=== PATIENT | male | born 1985 | race American Indian/Alaskan Native ===

== ENCOUNTER 2019-04-02 15:16 | Emergency (ER) | payer MEDICAID ==
[2019-04-02 16:05] VITALS: BP 120/80
[2019-04-02] MEDS ORDERED: TYLENOL PO ONE (16:08)
--- NOTE | 2019-04-02 16:08 | Event Note ---
ED Screening Note Date of service: 04/02/19 Time: 16:04 ED Screening Note: 33 y/o male comes in for headache for a few days after taking his Risperdal. Not been able to sleep for a few days. Walking halls more. No N/V. No SI/HI Does not want to speak to a mental health provider. PMH: history of schizophrenia Neuro: EMOI PERRA finger to nose intact gag reflect intact strength all extrimities 4/5 Gait normal Heel down horvath intact no pronator drift This initial assessment/diagnostic orders/clinical plan/treatment(s) is/are subject to change based on patients health status, clinical progression and re- assessment by fellow clinical providers in the ED. Further treatment and workup at subsequent clinical providers discretion. Patient/guardian urged not to elope from the ED as their condition may be serious if not clinically assessed and managed. Initial orders include:
--- NOTE | 2019-04-02 18:19 | Emergency Department Report ---
ED Headache HPI - General Chief Complaint: Headache Stated Complaint: HEAD PAIN Time Seen by Provider: 04/02/19 16:04 - History of Present Illness Initial Comments: pt is a 33 y/o aam with hx of schizophrenia and headache, on respiradol po states frontal headache intermittent x 1 week ,there is no decrease or blurred vision no n/v non dizziness no lightheadedness no n/v no fever or chills no neck pain , h/a relieved by tylenol po , pt now requesting referal to [facility] for psych medication refill, pt denies HI or SI is a/o x3 ambulatory with steady gait nad. Timing/Duration: 1 week Quality: moderate Head Injury Location: frontal Recent Head Trauma: frequent headaches Associated Symptoms: denies: confusion, fatigue, facial pain, fever/chills, loss of consciousness, nausea/vomiting, nasal congestion, nasal drainage, numbness in legs/feet, seizures, sinus infection, stiff neck, vision changes, weakness Allergies/Adverse Reactions: Allergies No Known Allergies Allergy (Verified 04/02/19 15:27) Home Medications: Ambulatory Orders Acetaminophen [Acetaminophen TAB] 1,000 mg PO Q6HR PRN #30 tablet 04/02/19 diphenhydrAMINE [Benadryl CAP] 25 mg PO Q6HR PRN #30 capsule 04/02/19 risperiDONE [RisperDAL] 1 mg PO BID 3 Days #6 tablet 04/02/19 ED Review of Systems ROS: Stated complaint: HEAD PAIN Other details as noted in HPI Constitutional: denies: chills, fever Eyes: denies: eye pain, eye discharge, vision change ENT: denies: ear pain, throat pain Respiratory: denies: cough, shortness of breath, wheezing Cardiovascular: denies: chest pain, palpitations Endocrine: no symptoms reported Gastrointestinal: denies: abdominal pain, nausea, diarrhea Genitourinary: denies: urgency, dysuria Musculoskeletal: denies: back pain, joint swelling, arthralgia Skin: denies: rash, lesions Neurological: as per HPI, headache. denies: weakness, numbness, confusion, vertigo Psychiatric: denies: anxiety, depression Hematological/Lymphatic: denies: easy bleeding, easy bruising ED Past Medical Hx - Past Medical History Previous Medical History?: Yes Additional medical history: schizophrenia - Surgical History Past Surgical History?: No - Social History Smoking Status: Never Smoker Substance Use Type: None - Medications Home Medications: Home Medications Medication Instructions Recorded Confirmed Last Taken Type Acetaminophen [Acetaminophen TAB] 1,000 mg PO Q6HR PRN #30 tablet 04/02/19 Unknown Rx diphenhydrAMINE [Benadryl CAP] 25 mg PO Q6HR PRN #30 capsule 04/02/19 Unknown Rx risperiDONE [RisperDAL] 1 mg PO BID 3 Days #6 tablet 04/02/19 Unknown Rx ED Physical Exam - General Limitations: No Limitations General appearance: alert, in no apparent distress - Head Head exam: Present: atraumatic, normocephalic, normal inspection - Eye Eye exam: Present: normal appearance, PERRL, EOMI. Absent: conjunctival injection, nystagmus, periorbital swelling, periorbital tenderness Pupils: Present: normal accommodation - ENT ENT exam: Present: normal orophraynx, mucous membranes moist, TM's normal bilaterally, normal external ear exam - Neck Neck exam: Present: normal inspection, full ROM. Absent: tenderness, meningismus, lymphadenopathy, thyromegaly - Expanded Neck Exam Expanded Neck exam: Absent: tenderness, midline deformity, anterior neck swelling, thyroid mass, carotid bruit, tracheal deviation - Respiratory Respiratory exam: Present: normal lung sounds bilaterally. Absent: respiratory distress, wheezes, rhonchi - Cardiovascular Cardiovascular Exam: Present: regular rate, normal rhythm, normal heart sounds. Absent: systolic murmur, diastolic murmur, rubs, gallop - GI/Abdominal GI/Abdominal exam: Present: soft, normal bowel sounds. Absent: distended, tenderness, bruit, hernia - Rectal Rectal exam: Present: deferred - Extremities Exam Extremities exam: Present: normal inspection, full ROM, normal capillary refill - Back Exam Back exam: Present: normal inspection, full ROM. Absent: tenderness, CVA tenderness (R), CVA tenderness (L), muscle spasm, paraspinal tenderness, rash noted - Neurological Exam Neurological exam: Present: alert, oriented X3, CN II-XII intact, normal gait, reflexes normal. Absent: motor sensory deficit - Expanded Neurological Exam Expanded Patient oriented to: Present: person, place, time Speech: Present: fluid speech Cranial nerves: EOM's Intact: Normal, Gag Reflex: Normal, Tongue Deviation: Normal, Nystagmus: Normal, Facial Sensation: Normal Cerebellar function: Finger to Nose: Normal, Heel to Chaudhry: Normal, Romberg: Normal Upper motor neuron: Robert Neglect: Normal, Pronator Drift: Normal, Sensory Extinction: Normal Motor strength exam: RUE: 5, LUE: 5, RLE: 5, LLE: 5 DTR: bicep (R): 2+, bicep (L): 2+, ankle (R): 2+, ankle (L): 2+ Best Eye Response (Lincoln): (4) open spontaneously Best Motor Response ([place]incoln): (6) obeys commands Best Verbal Response ([place]incoln): (5) oriented [place] Total: 15 - Psychiatric Psychiatric exam: Present: normal affect, normal mood - Skin Skin exam: Present: warm, dry, intact, normal color. Absent: rash ED Course Vital Signs 04/02/19 04/02/19 16:01 16:19 Temperature 98.2 F Pulse Rate 97 H Respiratory 20 18 Rate Blood Pressure 120/80 Blood Pressure 120/80 [Right] O2 Sat by Pulse 99 Oximetry ED Medical Decision Making - Medical Decision Making Headache relieved plan DC home with Tylenol Benadryl Reglan follow-up with [facility] for refill for her psych medications patient is currently alert oriented 3 hammertoe was steady gait with no acute distress headache is 1/10 at this time Critical care attestation.: If time is entered above; I have spent that time in minutes in the direct care of this critically ill patient, excluding procedure time. ED Disposition Clinical Impression: Headache Qualifiers: Headache type: unspecified Headache chronicity pattern: acute headache Intractability: not intractable Qualified Code(s): R51 - Headache Disposition: DC-01 TO HOME OR SELFCARE Is pt being admited?: No Does the pt Need Aspirin: No Condition: Stable Instructions: Acute Headache (ED) Prescriptions: Acetaminophen [Acetaminophen TAB] 1,000 mg PO Q6HR PRN #30 tablet PRN Reason: Headache diphenhydrAMINE [Benadryl CAP] 25 mg PO Q6HR PRN #30 capsule PRN Reason: Headache risperiDONE [RisperDAL] 1 mg PO BID 3 Days #6 tablet Referrals: [facility] [Outside] - 3-5 Days PRIMARY CARE, [Primary Care Provider] - 3-5 Days Forms: Work/School Release Form(ED) Time of Disposition: 18:30
== END 2019-04-02 18:44 | disposition home or self-care (01) ==
LOC: ED 15:16
DX: R51 Headache (principal); F20.9 Schizophrenia, unspecified; Z79.899 Other long term (current) drug therapy
CPT/HCPCS: 99282

== ENCOUNTER 2019-05-17 12:05 | Emergency (ER) | payer MEDICAID ==
[2019-05-17 14:27] LABS: Eosinophils % (Auto) 0.8 % (0.0-4.3); Hematocrit 44.6 % (35.5-45.6); Hemoglobin 15.1 gm/dl (11.8-15.2); Lymphocytes # (Auto) 1.4 K/mm3 (1.2-5.4); Lymphocytes % (Auto) 28.4 % (13.4-35.0); Mean Corpuscular HGB Conc 34 % (32-34); Mean Corpuscular Volume 98 fl (84-94); Monocytes # (Auto) 0.6 K/mm3 (0.0-0.8); Monocytes % (Auto) 12.1 % (0.0-7.3); Platelet Count 219 K/mm3 (140-440); Red Blood Count 4.55 M/mm3 (3.65-5.03); Red Cell Distribution Width 13.6 % (13.2-15.2)
[2019-05-17 14:41] LABS: Alanine Aminotransferase 8 units/L (7-56); Albumin 4.6 g/dL (3.9-5); BUN/Creatinine Ratio 10; Blood Urea Nitrogen 7 mg/dL (9-20); Calcium 9.2 mg/dL (8.4-10.2); Hemolysis Index 7
[2019-05-17] MEDS ORDERED: ATIVAN IM PRN (15:28)
[2019-05-17] MEDS ORDERED: HALDOL IM PRN (15:28)
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
[2019-05-17 15:48] LABS: Bilirubin,Urine NEG (Negative); Blood,Urine NEG (Negative); Color,Urine Yellow (Yellow); Mucus,Urine FEW /HPF; Protein,Urine <15 mg/dL mg/dL (Negative); Urobilinogen,Urine < 2.0 mg/dL (<2.0); WBC,Urine < 1.0 /HPF (0.0-6.0)
[2019-05-17 16:21] LABS: Amphetamine Screen,Urine PRESUMPTIVE NEGATIVE; Benzodiazepines Screen,Urine PRESUMPTIVE NEGATIVE; Cannabinoid Screen,Urine PRESUMPTIVE NEGATIVE; Cocaine Screen,Urine PRESUMPTIVE NEGATIVE; Methadone Screen,Urine PRESUMPTIVE NEGATIVE; Opiate Screen,Urine PRESUMPTIVE NEGATIVE
[2019-05-17 17:38] VITALS: BP 117/74
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
== END 2019-05-18 02:13 ==
LOC: ED 12:05 → EEVIPCON 12:05 → ED 05-18 02:13
DX: F20.0 Paranoid schizophrenia (principal)
CPT/HCPCS: 36415; 80053; 80307; 81001; 82550; 85025; 96372; 99285; J1630; 80320; G0480

== ENCOUNTER 2021-06-27 19:50 | Emergency (ER) | payer MEDICAID ==
[2021-06-27] MEDS ORDERED: ACETAMINOPHEN 500 MG TAB PO ONE (21:26)
[2021-06-27] MEDS ORDERED: IBUPROFEN 600 MG TAB PO ONE (21:26)
--- NOTE | 2021-06-27 21:46 | Emergency Department Report ---
ED Headache HPI - General Chief Complaint: Headache Stated Complaint: HEADACHE Source: patient Exam Limitations: no limitations - History of Present Illness Initial Comments: Patient is a 35-year-old -[place] male with a history of paranoid schizophrenia who presents to the ED with complaint of acute onset persistent headache for the last 12 hours. Patient states that the headache has been per sistent, constant and appears to be getting worse. Patient however rates the pain to be a 5 out of 10 in severity. Patient states that he has not taken any medication since the onset of this headache. Patient denies nausea, vomiting, dizziness, syncope, change in vision, traumatic injury or fall, neck pain, fever and chills, cough, abdominal pain, diarrhea or seizures. Timing/Duration: constant, waxing and waning, other (12 hours) Quality: moderate, achy, pressure Head Injury Location: global Recent Head Trauma: no recent headache/trauma Modifying Factors: worse with: cold therapy, exposure to light, immobilization, medication, movement Associated Symptoms: denies: denies symptoms, confusion, fatigue, facial pain, fever/chills, loss of consciousness, nasal congestion, numbness in legs/feet, seizures, sinus infection, stiff neck, weakness, other Allergies/Adverse Reactions: Allergies No Known Allergies Allergy (Verified 04/02/19 15:27) Home Medications: Ambulatory Orders Acetaminophen [Acetaminophen TAB] 1,000 mg PO Q6HR PRN #30 tablet 04/02/19 diphenhydrAMINE [Benadryl CAP] 25 mg PO Q6HR PRN #30 capsule 04/02/19 risperiDONE [RisperDAL] 1 mg PO BID 3 Days #6 tablet 04/02/19 Cyclobenzaprine [Flexeril] 10 mg PO TID PRN #15 tablet 06/27/21 Ibuprofen [Motrin] 600 mg PO Q8H PRN #20 tablet 06/27/21 ED Review of Systems ROS: Stated complaint: HEADACHE Other details as noted in HPI Constitutional: denies: chills, fever Eyes: denies: eye pain, eye discharge, vision change ENT: denies: ear pain, throat pain Respiratory: denies: cough, shortness of breath, wheezing Cardiovascular: denies: chest pain, palpitations Endocrine: no symptoms reported Gastrointestinal: denies: abdominal pain, nausea, diarrhea Genitourinary: denies: urgency, dysuria Musculoskeletal: denies: back pain, joint swelling, arthralgia Skin: denies: rash, lesions Neurological: headache. denies: weakness, paresthesias Psychiatric: denies: anxiety, depression Hematological/Lymphatic: denies: easy bleeding, easy bruising ED Past Medical Hx - Past Medical History Hx Psychiatric Treatment: Yes (Paranoid schizophrenia) Additional medical history: schizophrenia - Surgical History Past Surgical History?: No - Social History Smoking Status: Unknown if ever smoked Substance Use Type: None - Medications Home Medications: Home Medications Medication Instructions Recorded Confirmed Last Taken Type Acetaminophen [Acetaminophen TAB] 1,000 mg PO Q6HR PRN #30 tablet 04/02/19 05/17/19 Unknown Rx diphenhydrAMINE [Benadryl CAP] 25 mg PO Q6HR PRN #30 capsule 04/02/19 05/17/19 Unknown Rx risperiDONE [RisperDAL] 1 mg PO BID 3 Days #6 tablet 04/02/19 05/17/19 Unknown Rx Cyclobenzaprine [Flexeril] 10 mg PO TID PRN #15 tablet 06/27/21 Unknown Rx Ibuprofen [Motrin] 600 mg PO Q8H PRN #20 tablet 06/27/21 Unknown Rx ED Physical Exam - General Limitations: No Limitations General appearance: alert, in no apparent distress - Head Head exam: Present: atraumatic, normocephalic, normal inspection - Eye Eye exam: Present: normal appearance, PERRL, EOMI Pupils: Present: normal accommodation - ENT ENT exam: Present: normal exam, normal orophraynx, mucous membranes moist, TM's normal bilaterally, normal external ear exam - Neck Neck exam: Present: normal inspection, full ROM - Respiratory Respiratory exam: Present: normal lung sounds bilaterally. Absent: respiratory distress, wheezes, rales, stridor, chest wall tenderness, accessory muscle use, decreased breath sounds, prolonged expiratory - Cardiovascular Cardiovascular Exam: Present: normal rhythm, tachycardia, normal heart sounds. Absent: systolic murmur, diastolic murmur, rubs, gallop - GI/Abdominal GI/Abdominal exam: Present: soft, normal bowel sounds. Absent: tenderness, guarding, rebound, hyperactive bowel sounds, organomegaly, mass - Extremities Exam Extremities exam: Present: normal inspection, full ROM, normal capillary refill. Absent: tenderness, pedal edema, joint swelling, calf tenderness - Back Exam Back exam: Present: normal inspection, full ROM. Absent: tenderness, CVA tenderness (R), CVA tenderness (L), paraspinal tenderness, vertebral tenderness, rash noted - Neurological Exam Neurological exam: Present: alert, oriented X3, CN II-XII intact, normal gait, reflexes normal - Psychiatric Psychiatric exam: Present: normal affect, normal mood - Skin Skin exam: Present: warm, dry, intact, normal color. Absent: rash ED Course Vital Signs 06/27/21 20:01 Temperature 98.5 F Pulse Rate 100 H Respiratory 16 Rate Blood Pressure 130/90 O2 Sat by Pulse 98 Oximetry ED Medical Decision Making - Medical Decision Making This is a 35-year-old -[place] male with a history of paranoid schizophrenia who presents to the ED with complaint of acute onset persistent headache for the last 12 hours. Patient states that the headache has been persistent, constant and appears to be getting worse. Patient however rates the pain to be a 5 out of 10 in severity. Patient states that he has not taken any medication since the onset of this headache. In the ED, patient is alert and o riented x3 and is not in any distress. Based on the history and physical exam findings, the patient was treated for headache in the ED. On reevaluation, patient's headache resolved medication. Patient will discharge home on medications and advised to follow-up with his primary care physician in 5 to 7 days for reevaluation. Patient was advised return to the ED immediately if symptoms get worse. - Differential Diagnosis tension headache; cluster headache; anxiety Critical care attestation.: If time is entered above; I have spent that time in minutes in the direct care of this critically ill patient, excluding procedure time. ED Disposition Clinical Impression: Anxiety as acute reaction to exceptional stress Tension-type headache Qualifiers: Headache chronicity pattern: acute headache Intractability: not intractable Qualified Code(s): G44.209 - Tension-type headache, unspecified, not intractable Disposition: HOME / SELF CARE / HOMELESS Is pt being admited?: No Does the pt Need Aspirin: No Condition: Stable Instructions: Tension Headache, Adult, [id number] Additional Instructions: Take medication with food, drink plenty of fluids and follow-up with your primary care physician in 5 to 7 days for reevaluation. Return to the ED immediately if symptoms get worse. Prescriptions: Cyclobenzaprine [Flexeril] 10 mg PO TID PRN #15 tablet PRN Reason: Muscle Spasm Ibuprofen [Motrin] 600 mg PO Q8H PRN #20 tablet PRN Reason: Pain Referrals: [facility] [Provider Group] - 3-5 Days Time of Disposition: 21:47 Print Language: TRISTANIAN
[2021-06-27 22:23] VITALS: BP 128/82
== END 2021-06-27 22:25 | disposition home or self-care (01) ==
LOC: ED 19:50
DX: F43.0 Acute stress reaction (principal); G44.209 Tension-type headache, unspecified, not intractable; F20.9 Schizophrenia, unspecified
CPT/HCPCS: 99283

== ENCOUNTER 2022-03-11 16:28 | Emergency (ER) | payer MEDICAID ==
[2022-03-11 16:46] VITALS: BP 112/80
--- NOTE | 2022-03-11 17:01 | Emergency Department Report ---
HPI - General Chief Complaint: Psych Time Seen by Provider: 03/11/22 16:49 - HPI HPI: [facility] 24 Patient is a 36-year-old male present with a chief complaint of "I came to get 1013 and to get evaluated." Patient has a history of paranoid schizophrenia and states that his Haldol shot are not working. When asked why he wants to get 1013 the patient states because he just needs to get evaluated and he has cataracts. Patient denies suicidal homicidal ideation. Patient denies auditory visual hallucinations ED Past Medical Hx - Past Medical History Previous Medical History?: Yes Hx Psychiatric Treatment: Yes (Paranoid schizophrenia) Additional medical history: schizophrenia - Surgical History Past Surgical History?: No - Family History Family history: no significant - Social History Smoking Status: Current Every Day Smoker (1 pack/day) Substance Use Type: None (Denies illicit drug use), Alcohol (Occasional) - Medications Home Medications: Home Medications Medication Instructions Recorded Confirmed Last Taken Type Acetaminophen [Acetaminophen TAB] 1,000 mg PO Q6HR PRN #30 tablet 04/02/19 05/17/19 Unknown Rx diphenhydrAMINE [Benadryl CAP] 25 mg PO Q6HR PRN #30 capsule 04/02/19 05/17/19 Unknown Rx risperiDONE [RisperDAL] 1 mg PO BID 3 Days #6 tablet 04/02/19 05/17/19 Unknown Rx Cyclobenzaprine [Flexeril] 10 mg PO TID PRN #15 tablet 06/27/21 Unknown Rx Ibuprofen [Motrin] 600 mg PO Q8H PRN #20 tablet 06/27/21 Unknown Rx ED Review of Systems ROS: Stated complaint: MENTAL HEALTH EVAL Other details as noted in HPI Constitutional: no symptoms reported Eyes: other (Cataract) ENT: denies: ear pain Respiratory: no symptoms reported Cardiovascular: denies: chest pain Endocrine: no symptoms reported Gastrointestinal: denies: abdominal pain Genitourinary: denies: dysuria Musculoskeletal: denies: back pain Neurological: denies: headache Psychiatric: denies: auditory hallucinations, visual hallucinations, homicidal thoughts, suicidal thoughts Physical Exam - Physical Exam Vital Signs: Vital Signs 03/11/22 16:40 Temperature 97.9 F Pulse Rate 90 Respiratory 14 Rate Blood Pressure 112/80 [Left] O2 Sat by Pulse 99 Oximetry Physical Exam: GENERAL: The patient is well-developed well-nourished male lying on stretcher not appearing to be in acute distress. Flat affect HEENT: Normocephalic. Atraumatic. Extraocular motions are intact. Patient has moist mucous membranes. No nystagmus NECK: Supple. Trachea midline CHEST/LUNGS: Clear to auscultation. There is no respiratory distress noted. HEART/CARDIOVASCULAR: Regular. There is no tachycardia. There is no gallop rub or murmur. ABDOMEN: Abdomen is soft, nontender. Patient has normal bowel sounds. There is no abdominal distention. SKIN: There is no rash. There is no edema. There is no diaphoresis. NEURO: The patient is awake, alert, and oriented. The patient is cooperative. The patient has no focal neurologic deficits. The patient has normal speech. Cranial nerves II through XII grossly intact. GCS 15 MUSCULOSKELETAL: There is no evidence of acute injury. ED Course Vital Signs 03/11/22 16:40 Temperature 97.9 F Pulse Rate 90 Respiratory 14 Rate Blood Pressure 112/80 [Left] O2 Sat by Pulse 99 Oximetry ED Medical Decision Making - Lab Data Result diagrams: 03/11/22 16:59 03/11/22 16:59 Laboratory Tests 03/11/22 03/11/22 03/11/22 16:59 16:59 16:59 WBC 5.3 RBC 4.31 Hgb 14.2 Hct 42.1 MCV 98 H MCH 33 H MCHC 34 RDW 13.7 Plt Count 214 Lymph % (Auto) 30.9 Banks % (Auto) 11.3 H Eos % (Auto) 2.1 Baso % (Auto) 0.9 Lymph # (Auto) 1.6 Banks # (Auto) 0.6 Eos # (Auto) 0.1 Baso # (Auto) 0.0 Seg Neutrophils % 54.8 Seg Neutrophils # 2.9 Sodium 142 Potassium 4.0 Chloride 105.7 Carbon Dioxide 25 Anion Gap 15 BUN 11 Creatinine 1.0 Estimated GFR > 60 BUN/Creatinine Ratio 11 Glucose 95 Calcium 8.9 Urine Color Urine Turbidity Urine pH Ur Specific [place] Urine Protein Urine Glucose (UA) Urine Ketones Urine Blood Urine Nitrite Ur Reducing Substances Urine Bilirubin Urine Ictotest Urine Urobilinogen Ur Leukocyte Esterase Urine WBC (Auto) Urine RBC (Auto) U Epithel Cells (Auto) Urine Mucus Salicylates < 0.3 L Urine Opiates Screen Urine Methadone Screen Acetaminophen Ur Barbiturates Screen Ur Phencyclidine Scrn Ur Amphetamines Screen U Benzodiazepines Scrn Urine Cocaine Screen U Marijuana (THC) Screen Drugs of Abuse Note Plasma/Serum Alcohol 03/11/22 03/11/22 03/11/22 16:59 16:59 17:09 WBC RBC Hgb Hct MCV MCH MCHC RDW Plt Count Lymph % (Auto) Banks % (Auto) Eos % (Auto) Baso % (Auto) Lymph # (Auto) Banks # (Auto) Eos # (Auto) Baso # (Auto) Seg Neutrophils % Seg Neutrophils # Sodium Potassium Chloride Carbon Dioxide Anion Gap BUN Creatinine Estimated GFR BUN/Creatinine Ratio Glucose Calcium Urine Color Yellow Urine Turbidity Slightly cloudy Urine pH 5.0 Ur Specific [place] 1.020 Urine Protein <15 mg/dl Urine Glucose (UA) Negative Urine Ketones Negative Urine Blood Negative Urine Nitrite Negative Ur Reducing Substances Not Reportable Urine Bilirubin Negative Urine Ictotest Not Reportable Urine Urobilinogen < 2.3 Ur Leukocyte Esterase Negative Urine WBC (Auto) < 1.0 Urine RBC (Auto) < 1.0 U Epithel Cells (Auto) 1.0 Urine Mucus 2+ Salicylates Urine Opiates Screen Urine Methadone Screen Acetaminophen 5.0 L Ur Barbiturates Screen Ur Phencyclidine Scrn Ur Amphetamines Screen U Benzodiazepines Scrn Urine Cocaine Screen U Marijuana (THC) Screen Drugs of Abuse Note Plasma/Serum Alcohol < 0.01 03/11/22 17:09 WBC RBC Hgb Hct MCV MCH MCHC RDW Plt Count Lymph % (Auto) Banks % (Auto) Eos % (Auto) Baso % (Auto) Lymph # (Auto) Banks # (Auto) Eos # (Auto) Baso # (Auto) Seg Neutrophils % Seg Neutrophils # Sodium Potassium Chloride Carbon Dioxide Anion Gap BUN Creatinine Estimated GFR BUN/Creatinine Ratio Glucose Calcium Urine Color Urine Turbidity Urine pH Ur Specific [place] Urine Protein Urine Glucose (UA) Urine Ketones Urine Blood Urine Nitrite Ur Reducing Substances Urine Bilirubin Urine Ictotest Urine Urobilinogen Ur Leukocyte Esterase Urine WBC (Auto) Urine RBC (Auto) U Epithel Cells (Auto) Urine Mucus Salicylates Urine Opiates Screen Negative Urine Methadone Screen Negative Acetaminophen Ur Barbiturates Screen Negative Ur Phencyclidine Scrn Negative Ur Amphetamines Screen Negative U Benzodiazepines Scrn Negative Urine Cocaine Screen Negative U Marijuana (THC) Screen Negative Drugs of Abuse Note Disclamer Plasma/Serum Alcohol - Differential Diagnosis Schizophrenia Critical care attestation.: If time is entered above; I have spent that time in minutes in the direct care of this critically ill patient, excluding procedure time. ED Disposition Clinical Impression: Schizophrenia Disposition: HOME / SELF CARE / HOMELESS Is pt being admited?: No Does the pt Need Aspirin: No Condition: Stable Instructions: Schizophrenia Additional Instructions: Professional and Agency Contacts To help [facility](17/02) [place] Crisis Line: Suicide Prevention Line: Crisis Text Line: Text START to [phone] Emergency: 911 Outpatient COMMUNITY Behavioral Health Resources: [facility]: [facility] [address] [place], [place] [address] [employer]: [address] [address] [facility] [address] [place] [address] Friday thru Friday - 8am - 5pm [facility] Service Address: [address] [place] [address] [facility] Address: [address] [place] [address] Friday thru Friday- 7am-2pm [facility] Address: [address] [place] [address] Friday thru Friday: 8:30AM-5PM Referrals: [facility] [Outside] - 3-5 Days YAMIL MANLEY MD [Staff Physician] - 3-5 Days (Dr. Manley is an director of in service education. Please follow-up with him for further evaluation) Time of Disposition: 19:31
[2022-03-11 17:31] LABS: Basophils % (Auto) 0.9 % (0.0-1.8); Eosinophils # (Auto) 0.1 K/mm3 (0.0-0.4); Eosinophils % (Auto) 2.1 % (0.0-4.3); Hematocrit 42.1 % (35.5-45.6); Hemoglobin 14.2 gm/dl (11.8-15.2); Lymphocytes # (Auto) 1.6 K/mm3 (1.2-5.4); Lymphocytes % (Auto) 30.9 % (13.4-35.0); Mean Corpuscular HGB Conc 34 % (32-34); Mean Corpuscular Volume 98 fl (84-94); Monocytes # (Auto) 0.6 K/mm3 (0.0-0.8); Monocytes % (Auto) 11.3 % (0.0-7.3); Platelet Count 214 K/mm3 (140-440); Red Blood Count 4.31 M/mm3 (3.65-5.03); Red Cell Distribution Width 13.7 % (13.2-15.2)
[2022-03-11 17:56] LABS: BUN/Creatinine Ratio 11; Blood Urea Nitrogen 11 mg/dL (9-20); Calcium 8.9 mg/dL (8.4-10.2); Hemolysis Index 3
[2022-03-11 17:59] LABS: Mucus,Urine 2+ /HPF; RBC,Urine < 1.0 /HPF (0.0-6.0); WBC,Urine < 1.0 /HPF (0.0-6.0)
[2022-03-11 18:00] LABS: Bilirubin,Urine Negative (Negative); Blood,Urine Negative (Negative); Color,Urine Yellow (Yellow)
[2022-03-11 18:01] LABS: Protein,Urine <15 mg/dL mg/dL (Negative); Urobilinogen,Urine < 2.3 mg/dL (<2.0)
[2022-03-11 18:05] LABS: Amphetamine Screen,Urine Negative; Benzodiazepines Screen,Urine Negative; Cannabinoid Screen,Urine Negative; Cocaine Screen,Urine Negative; Methadone Screen,Urine Negative; Opiate Screen,Urine Negative
== END 2022-03-11 20:17 | disposition home or self-care (01) ==
LOC: ED 16:28
DX: F20.9 Schizophrenia, unspecified (principal); F17.200 Nicotine dependence, unspecified, uncomplicated; Z79.899 Other long term (current) drug therapy
CPT/HCPCS: 36415; 80048; 80307; 80320; 81001; 85025; 99284; G0480